=== PATIENT | male | born 1950 | race Two or more races ===

== ENCOUNTER 2017-05-17 08:18 | Outpatient (CLI) | payer OTHER ==
[~2017-05-17] VITALS: Ht 172.7 cm; Wt 77.1 kg
[~2017-05-17 08:18] MED LIST: AVELOX ABC PAC400 MG; PRILOSEC20 MG; PROVENTIL3 ML/2.5 M
== END 2017-05-17 08:45 | disposition home or self-care (01) ==
LOC: OFIC 805 08:18
DX: R05 Cough (principal); J45.998 Other asthma; J32.8 Other chronic sinusitis

== ENCOUNTER 2017-05-19 09:43 | Outpatient (CLI) | payer OTHER | END 2017-05-19 09:54 | disposition home or self-care (01) | LOC: RAD 09:43 | DX: J20.9 Acute bronchitis, unspecified (principal) ==

== ENCOUNTER 2018-05-25 10:13 | Inpatient (IN) | payer OTHER ==
[~2018-05-25] VITALS: Ht 172.7 cm; Wt 79.4 kg
--- NOTE | 2018-05-25 10:18 | NUR ---
SE RECIBE PTE EL CUAL REFIERE PRESENTAR VARIOS EPISODIOS DE VOMITOS DESDE EL LAYO VIERNES. PTE REFIERE PRESENTAR VARIOS EPISODIOS DE VOMITOS Y MALE[employer] COSNTANTE.
== END 2018-05-28 10:27 | disposition home or self-care (01) | DRG 392 ==
LOC: ER 10:13 → SEC-K 10:33 → MEDJ 10:33
PROVIDERS: ADMIT Internal Medicine Cardiovascular Disease
PROC: BW40ZZZ Ultrasonography of Abdomen (ICD-10-PCS; principal; 2018-05-25)
PROC: 3E0F7GC Introduction of Other Therapeutic Substance into Respiratory Tract, Via Natural or Artificial Opening (ICD-10-PCS; 2018-05-25)
DX: K52.89 Other specified noninfective gastroenteritis and colitis (principal); E86.0 Dehydration; J45.909 Unspecified asthma, uncomplicated

== ENCOUNTER 2018-06-15 08:29 | Outpatient (CLI) | payer OTHER | END 2018-06-15 08:39 | disposition home or self-care (01) | LOC: RAD 08:29 | DX: S80.01XA Contusion of right knee, initial encounter (principal) ==

== ENCOUNTER 2018-06-24 09:08 | Outpatient (CLI) | payer OTHER | END 2018-06-24 16:17 | disposition home or self-care (01) | LOC: RX STUDY 09:08 | DX: M47.892 Other spondylosis, cervical region (principal) ==

== ENCOUNTER 2018-11-11 10:06 | Outpatient (CLI) | payer OTHER | END 2018-11-11 16:23 | disposition home or self-care (01) | LOC: MRI 10:06 | DX: M54.02 Panniculitis affecting regions of neck and back, cervical region (principal); M50.10 Cervical disc disorder with radiculopathy, unspecified cervical region; J45.998 Other asthma; M96.1 Postlaminectomy syndrome, not elsewhere classified; M50.31 Other cervical disc degeneration, high cervical region; G89.29 Other chronic pain; K21.9 Gastro-esophageal reflux disease without esophagitis ==

== ENCOUNTER 2020-01-17 10:07 | Inpatient (IN) | payer OTHER ==
[~2020-01-17] VITALS: Ht 172.7 cm; Wt 175.0 kg
[2020-01-17] MEDS ORDERED: DILANTIN30 MG (10:18)
--- NOTE | 2020-01-17 10:19 | NUR ---
PACIENTE REFIERE TENER DOLOR DE ABDOMEN LADO EDVIN AREA INFERIOR. SE OBSERVA PACIENTE AMBULANDO, ALERTA Y ORIENTADO.
[2020-01-17] MEDS ORDERED: DEXILANT60 MG (10:20)
[2020-01-17] MEDS ORDERED: XOPENEX CO1.25 MG/0. (10:20)
[2020-01-17] MEDS ORDERED: PEPCID AC20 MG (10:20)
--- NOTE | 2020-01-17 10:51 | NUR ---
PACIENTE ALERTA Y ORIENTADO EN TIEMPO LUGAR Y PERSONA. RN MITZY ORIENTA A PACIENTE SOBRE TRATAMIENTO ORDENADO POR DRA. STYLES, PTE VERBALIZA ENTENDER. RN COLECTA MUESTRAS ORDENADAS Y COLOCA VENOPUNCION HANSA DE ERITEMA Y EDEMA UTILIZANDO MEDIDAS ASEPTICAS ADECUADAS. PACIENTE EN ESPERA DE RESULTADOS PARA RE-EVALUACION MEDICA. SE MANTIENE EN OBSERVACION POR CAMBIOS SIGNIFICATIVOS EN BOATENG CONDICION.
== END 2020-01-21 17:33 | disposition home or self-care (01) | DRG 392 ==
LOC: ER 10:07 → SURH 11:16 → SEC-K 11:16 → SURH 13:22
PROVIDERS: ADMIT Internal Medicine Cardiovascular Disease; ATTEND Internal Medicine Cardiovascular Disease
PROC: BW21ZZZ Computerized Tomography (CT Scan) of Abdomen and Pelvis (ICD-10-PCS; principal; 2020-01-17)
DX: K57.32 Diverticulitis of large intestine without perforation or abscess without bleeding (principal); J44.9 Chronic obstructive pulmonary disease, unspecified; E86.0 Dehydration; K52.89 Other specified noninfective gastroenteritis and colitis; Z20.828 Contact with and (suspected) exposure to other viral communicable diseases

== ENCOUNTER 2020-04-17 14:13 | Outpatient (CLI) | payer OTHER ==
[~2020-04-17 14:13] MED LIST changes: +DEXILANT60 MG; +DILANTIN30 MG; +PEPCID AC20 MG; +XOPENEX CO1.25 MG/0.
== END 2020-04-17 14:17 ==
LOC: RAD 14:13
DX: I10 Essential (primary) hypertension (principal); C61 Malignant neoplasm of prostate; Z02.79 Encounter for issue of other medical certificate

== ENCOUNTER 2020-11-21 08:00 | Outpatient (CLI) | payer OTHER | END 2020-11-21 08:30 | disposition home or self-care (01) | LOC: PPH VACUNA 08:00 | DX: Z23 Encounter for immunization (principal) ==

== ENCOUNTER 2021-07-15 08:55 | Outpatient (CLI) | payer OTHER | END 2021-07-15 09:00 | disposition home or self-care (01) | LOC: PPH VACUNA 08:55 | PROVIDERS: ATTEND Emergency Medicine Pediatric Emergency Medicine | DX: Z23 Encounter for immunization (principal) ==

== ENCOUNTER → 2021-07-15 10:20 | Outpatient (CLI) | payer OTHER | END | disposition home or self-care (01) | LOC: PPH VACUNA 10:20 | PROVIDERS: ATTEND Emergency Medicine Pediatric Emergency Medicine | DX: Z23 Encounter for immunization (principal) | CPT/HCPCS: 90686; G0008 ==

== ENCOUNTER 2021-08-25 10:51 | Outpatient (CLI) | payer OTHER | END 2021-08-27 16:07 | disposition home or self-care (01) | LOC: MRI 10:51 | PROVIDERS: ATTEND Anesthesiology Pain Medicine | DX: G44.221 Chronic tension-type headache, intractable (principal) | CPT/HCPCS: 70553; Q9965 ==

== ENCOUNTER 2021-12-30 12:40 | Outpatient (CLI) | payer OTHER | END 2021-12-30 12:50 | disposition home or self-care (01) | LOC: PPH VACUNA 12:40 | PROVIDERS: ATTEND Emergency Medicine Pediatric Emergency Medicine | DX: Z23 Encounter for immunization (principal) ==

== ENCOUNTER 2023-03-15 10:34 | Outpatient (CLI) | payer OTHER | END 2023-03-15 10:49 | disposition home or self-care (01) | LOC: MRI 10:34 | PROVIDERS: ATTEND Anesthesiology Pain Medicine | DX: S69.91XA Unspecified injury of right wrist, hand and finger(s), initial encounter (principal) ==

== ENCOUNTER 2023-05-10 10:03 | Outpatient (CLI) | payer OTHER | END 2023-05-10 10:06 | disposition home or self-care (01) | LOC: RAD 10:03 | PROVIDERS: ATTEND Anesthesiology Pain Medicine | DX: S99.921A Unspecified injury of right foot, initial encounter (principal) ==

== ENCOUNTER 2023-12-03 10:21 | Outpatient (CLI) | payer OTHER | END 2023-12-03 10:22 | disposition home or self-care (01) | LOC: TOM 10:21 | PROVIDERS: ATTEND Anesthesiology Pain Medicine | DX: K57.92 Diverticulitis of intestine, part unspecified, without perforation or abscess without bleeding (principal) ==

== ENCOUNTER 2023-12-10 09:59 | Outpatient (CLI) | payer OTHER | END 2023-12-10 10:07 | disposition home or self-care (01) | LOC: SONOGRAMA 09:59 | PROVIDERS: ATTEND Internal Medicine Cardiovascular Disease | DX: R10.9 Unspecified abdominal pain (principal); N40.0 Benign prostatic hyperplasia without lower urinary tract symptoms; N39.0 Urinary tract infection, site not specified ==

== ENCOUNTER 2023-12-31 07:18 | Outpatient (CLI) | payer OTHER | END 2023-12-31 07:30 | disposition home or self-care (01) | LOC: TOM 07:18 | PROVIDERS: ATTEND Internal Medicine Cardiovascular Disease | DX: R10.9 Unspecified abdominal pain (principal); N40.0 Benign prostatic hyperplasia without lower urinary tract symptoms; N30.00 Acute cystitis without hematuria; K62.5 Hemorrhage of anus and rectum; K51.90 Ulcerative colitis, unspecified, without complications | CPT/HCPCS: 74177; Q9965 ==

== ENCOUNTER 2024-01-26 07:01 | Day surgery (SDC) | payer OTHER ==
[2024-01-26] MEDS ORDERED: METRONIDAZOLE/SODIUM CHLORIDE 500 MG/100 ML PIGGYBACK IV ONE (11:15)
[2024-01-26] MEDS ORDERED: BUPIVACAINE HCL 30 ML VIAL IJ ONE (11:15)
[2024-01-26] MEDS ORDERED: BUPIVACAINE LIPOSOME/PF 266 MG/20 ML VIAL IJ ONE (11:15)
[2024-01-26] MEDS ORDERED: CEFTRIAXONE SODIUM 2,000 MG VIAL IV ONE (11:15)
[2024-01-26] MEDS ORDERED: ENOXAPARIN SODIUM 40 MG/0.4 ML SYRINGE SUBCUTANEO ONE (11:15)
[2024-01-26] MEDS ORDERED: SUGAMMADEX SODIUM 200 MG/2 ML VIAL IV ONE (12:15)
[2024-01-26] MEDS ORDERED: TRAMADOL HCL50 MG PO (12:30)
[2024-01-26] MEDS ORDERED: POLY119PG PO (12:30)
[2024-01-26] MEDS ORDERED: MORPHINE SULFATE 4 MG/ML VIAL IV ONE ×2 (13:25→13:55)
== END 2024-01-26 16:24 | disposition home or self-care (01) ==
LOC: CIR.AMB 07:01
PROVIDERS: ATTEND Surgery
DX: K40.90 Unilateral inguinal hernia, without obstruction or gangrene, not specified as recurrent (principal)
CPT/HCPCS: 49650; C1781

== ENCOUNTER 2024-06-09 09:27 | Outpatient (CLI) | payer OTHER ==
[~2024-06-09 09:27] MED LIST changes: +POLY119PG PO; +TRAMADOL HCL50 MG PO
== END 2024-06-09 09:31 | disposition home or self-care (01) ==
LOC: RAD 09:27
PROVIDERS: ATTEND Anesthesiology Pain Medicine
DX: M25.511 Pain in right shoulder (principal)

== ENCOUNTER 2024-12-22 10:08 | Outpatient (CLI) | payer OTHER ==
[2025-01-13] MEDS ORDERED: ALBUTEROL1.25 MG/3 IH (15:22)
== END 2024-12-22 10:11 | disposition home or self-care (01) ==
LOC: TOM 10:08
PROVIDERS: ATTEND Anesthesiology Pain Medicine
DX: K57.30 Diverticulosis of large intestine without perforation or abscess without bleeding (principal); R10.9 Unspecified abdominal pain; N39.0 Urinary tract infection, site not specified; N40.0 Benign prostatic hyperplasia without lower urinary tract symptoms; R10.32 Left lower quadrant pain; K21.9 Gastro-esophageal reflux disease without esophagitis
CPT/HCPCS: 74177; Q9965

== ENCOUNTER → 2024-12-22 10:34 | Outpatient (CLI) | payer OTHER ==
[2024-12-22 11:22] LABS: CREATININE SERUM 0.83 mg/dL (0.70-1.30)
== END | disposition home or self-care (01) ==
LOC: LAB 10:34
PROVIDERS: ATTEND Radiology Diagnostic Radiology
DX: K57.30 Diverticulosis of large intestine without perforation or abscess without bleeding (principal); R10.9 Unspecified abdominal pain; N39.0 Urinary tract infection, site not specified

== ENCOUNTER 2025-03-14 09:32 | Outpatient (CLI) | payer OTHER ==
[~2025-03-14 09:32] MED LIST changes: +ALBUTEROL1.25 MG/3 IH
== END 2025-03-14 10:44 | disposition home or self-care (01) ==
LOC: SONOGRAMA 09:32
PROVIDERS: ATTEND Anesthesiology Pain Medicine
DX: M79.652 Pain in left thigh (principal)